=== PATIENT | female | born 1950 | race Caucasian/White ===

== ENCOUNTER → 2018-03-08 | Outpatient (CLI) | payer MEDICARE ==
[~2018-03-08] MED LIST: ASPI81CH PO; FURO40 PO; LEVO750 PO; POTCHL10ER
[2018-03-08 15:10] LABS: BASOPHILS ABSOLUTE AUTO 0.03 K/mm3 (0.00-0.23); BASOPHILS PERCENT AUTO 1 % (0-2); EOSINOPHILS PERCENT AUTO 2 % (0-6); Hematocrit 39.4 % (33.0-51.0); Hemoglobin 12.7 g/dL (11.5-16.0); IMMATURE GRAN ABSOLUTE AUTO 0.03 K/mm3 (0.00-0.10); IMMATURE GRAN PERCENT AUTO 1 % (0-1); LYMPHOCYTES ABSOLUTE AUTO 2.49 K/mm3 (0.84-5.20); LYMPHOCYTES PERCENT AUTO 38 % (21-46); MONOCYTES ABSOLUTE AUTO 0.59 K/mm3 (0.16-1.47); MONOCYTES PERCENT AUTO 9 % (4-13); Mean Corpuscular HGB 29.3 pg (26.0-34.0); Mean Corpuscular HGB Conc 32.2 g/dL (31.5-36.5); Mean Corpuscular Volume 91 fL (80-100); Mean Platelet Volume 8.9 fL (9.1-12.4); NEUTROPHILS ABSOLUTE AUTO 3.39 K/mm3 (1.96-9.15); NEUTROPHILS PERCENT AUTO 51 % (41-73); Platelet Count 309 K/mm3 (150-400); RDW Coefficient Variation 14.3 % (11.7-14.2); RDW Standard Deviation 47.5 fL (35.1-46.3); Red Blood Cell Count 4.34 M/mm3 (3.80-5.20); White Blood Cell Count 6.63 K/mm3 (4.00-11.30)
[2018-03-08 15:26] LABS: Alanine Aminotransfer (ALT/SGP 29 U/L (12-78); Albumin, Blood 4.1 g/dL (3.4-5.0); Albumin/Globulin Ratio 1.2 (0.8-1.8); Alk Phos 89 U/L (40-126); Anion Gap 10 mmol/L (6-16); Aspartate Aminotrans (AST/SGOT 25 U/L (12-37); Bilirubin, Total 0.4 mg/dL (0.1-1.0); Blood Urea Nitrogen 15 mg/dL (8-24); CO2, Blood 28 mmol/L (21-32); Calcium, Blood 9.3 mg/dL (8.5-10.1); Chloride, Blood 101 mmol/L (98-108); Creatinine, Blood 0.88 mg/dL (0.40-1.00); Globulin, Blood 3.4 g/dL (2.2-4.0); Glomerular Filtration Rate >60 (60-); Glucose, Blood 81 mg/dL (70-99); Potassium, Blood 4.2 mmol/L (3.5-5.5); Sodium, Blood 139 mmol/L (136-145); Total Protein, Blood 7.5 g/dL (6.4-8.2)
== END ==
LOC: LAB SHORT 15:01 → LAB EV 15:01
PROVIDERS: General Practice
DX: L03.115 Cellulitis of right lower limb (principal); L03.116 Cellulitis of left lower limb
CPT/HCPCS: 80053; 83880; 85025; 85379

== ENCOUNTER 2018-08-01 02:05 | Emergency (ER) | payer MEDICARE ==
[~2018-08-01] VITALS: Ht 157.5 cm; Wt 77.1 kg
[2018-08-01 03:47] LABS: BASOPHILS ABSOLUTE AUTO 0.04 K/mm3 (0.00-0.23); BASOPHILS PERCENT AUTO 1 % (0-2); EOSINOPHILS ABSOLUTE AUTO 0.04 K/mm3 (0.00-0.68); EOSINOPHILS PERCENT AUTO 1 % (0-6); Hematocrit 36.7 % (33.0-51.0); Hemoglobin 11.6 g/dL (11.5-16.0); IMMATURE GRAN ABSOLUTE AUTO 0.02 K/mm3 (0.00-0.10); IMMATURE GRAN PERCENT AUTO 0 % (0-1); LYMPHOCYTES ABSOLUTE AUTO 2.18 K/mm3 (0.84-5.20); LYMPHOCYTES PERCENT AUTO 26 % (21-46); MONOCYTES ABSOLUTE AUTO 1.12 K/mm3 (0.16-1.47); MONOCYTES PERCENT AUTO 14 % (4-13); Mean Corpuscular HGB 29.3 pg (26.0-34.0); Mean Corpuscular HGB Conc 31.6 g/dL (31.5-36.5); Mean Corpuscular Volume 93 fL (80-100); NEUTROPHILS PERCENT AUTO 59 % (41-73); Platelet Count 277 K/mm3 (150-400); RDW Coefficient Variation 14.1 % (11.7-14.2); RDW Standard Deviation 47.9 fL (35.1-46.3); Red Blood Cell Count 3.96 M/mm3 (3.80-5.20)
[2018-08-01 03:58] LABS: Albumin, Blood 3.5 g/dL (3.4-5.0); Albumin/Globulin Ratio 0.9 (0.8-1.8); Bilirubin, Total 0.6 mg/dL (0.1-1.0); Bun/Creatinine Ratio 11.5 (12.0-20.0); Calcium, Blood 8.7 mg/dL (8.5-10.1); Creatinine, Blood 1.04 mg/dL (0.40-1.00); Globulin, Blood 3.8 g/dL (2.2-4.0); Potassium, Blood 3.3 mmol/L (3.5-5.5); Total Protein, Blood 7.3 g/dL (6.4-8.2)
[2018-08-01] MEDS ORDERED: Cleocin HCl150 MG PO (05:48)
[2018-08-01] MEDS ORDERED: Zofran Odt4 MG SL (06:12)
== END 2018-08-01 06:08 | disposition home or self-care (01) ==
LOC: ER 02:05
PROVIDERS: Emergency Medicine
DX: L03.116 Cellulitis of left lower limb (principal); Z79.82 Long term (current) use of aspirin; Z79.899 Other long term (current) drug therapy
CPT/HCPCS: 36415; 80053; 85025; 93971; 96365; 96375; 99284-25; J0690; J3010

== ENCOUNTER → 2019-02-15 | Outpatient (CLI) | payer MEDICARE ==
[~2019-02-15] MED LIST changes: +Cleocin HCl150 MG PO; +Zofran Odt4 MG SL
[2019-02-15 11:36] LABS: BASOPHILS ABSOLUTE AUTO 0.05 K/mm3 (0.00-0.23); BASOPHILS PERCENT AUTO 1 % (0-2); EOSINOPHILS ABSOLUTE AUTO 0.19 K/mm3 (0.00-0.68); EOSINOPHILS PERCENT AUTO 4 % (0-6); Hematocrit 38.4 % (33.0-51.0); Hemoglobin 12.6 g/dL (11.5-16.0); IMMATURE GRAN ABSOLUTE AUTO 0.01 K/mm3 (0.00-0.10); IMMATURE GRAN PERCENT AUTO 0 % (0-1); LYMPHOCYTES ABSOLUTE AUTO 2.02 K/mm3 (0.84-5.20); LYMPHOCYTES PERCENT AUTO 37 % (21-46); MONOCYTES PERCENT AUTO 9 % (4-13); Mean Corpuscular HGB 29.8 pg (26.0-34.0); Mean Corpuscular HGB Conc 32.8 g/dL (31.5-36.5); Mean Corpuscular Volume 91 fL (80-100); Mean Platelet Volume 8.8 fL (9.1-12.4); NEUTROPHILS ABSOLUTE AUTO 2.73 K/mm3 (1.96-9.15); NEUTROPHILS PERCENT AUTO 50 % (41-73); Platelet Count 313 K/mm3 (150-400); RDW Standard Deviation 46.5 fL (35.1-46.3); Red Blood Cell Count 4.23 M/mm3 (3.80-5.20)
[2019-02-15 12:00] LABS: Bun/Creatinine Ratio 14.8 (12.0-20.0); Calcium, Blood 8.6 mg/dL (8.5-10.1); Creatinine, Blood 1.08 mg/dL (0.40-1.00); Potassium, Blood 3.8 mmol/L (3.5-5.5)
== END | disposition home or self-care (01) ==
LOC: LAB EV 11:18 → LAB SHORT 11:18
PROVIDERS: Physician Assistant Surgical
DX: R22.43 Localized swelling, mass and lump, lower limb, bilateral (principal)
CPT/HCPCS: 80048; 85025

== ENCOUNTER 2019-03-18 18:51 | Emergency (ER) | payer MEDICARE ==
[~2019-03-18] VITALS: Ht 157.5 cm; Wt 84.4 kg
[2019-03-18 20:37] LABS: BASOPHILS ABSOLUTE AUTO 0.04 K/mm3 (0.00-0.23); BASOPHILS PERCENT AUTO 1 % (0-2); EOSINOPHILS ABSOLUTE AUTO 0.09 K/mm3 (0.00-0.68); EOSINOPHILS PERCENT AUTO 1 % (0-6); Hematocrit 40.7 % (33.0-51.0); Hemoglobin 12.7 g/dL (11.5-16.0); IMMATURE GRAN ABSOLUTE AUTO 0.02 K/mm3 (0.00-0.10); IMMATURE GRAN PERCENT AUTO 0 % (0-1); LYMPHOCYTES ABSOLUTE AUTO 1.98 K/mm3 (0.84-5.20); LYMPHOCYTES PERCENT AUTO 28 % (21-46); MONOCYTES ABSOLUTE AUTO 0.74 K/mm3 (0.16-1.47); MONOCYTES PERCENT AUTO 10 % (4-13); Mean Corpuscular HGB 29.3 pg (26.0-34.0); Mean Corpuscular HGB Conc 31.2 g/dL (31.5-36.5); Mean Corpuscular Volume 94 fL (80-100); Mean Platelet Volume 9.5 fL (9.1-12.4); NEUTROPHILS ABSOLUTE AUTO 4.26 K/mm3 (1.96-9.15); NEUTROPHILS PERCENT AUTO 60 % (41-73); Platelet Count 293 K/mm3 (150-400); RDW Coefficient Variation 13.7 % (11.7-14.2); Red Blood Cell Count 4.33 M/mm3 (3.80-5.20); White Blood Cell Count 7.13 K/mm3 (4.00-11.30)
[2019-03-18 20:57] LABS: Albumin, Blood 4.2 g/dL (3.4-5.0); Albumin/Globulin Ratio 1.2 (0.8-1.8); Bilirubin, Total 0.4 mg/dL (0.1-1.0); Calcium, Blood 9.1 mg/dL (8.5-10.1); Globulin, Blood 3.5 g/dL (2.2-4.0); Total Protein, Blood 7.7 g/dL (6.4-8.2)
== END 2019-03-19 01:46 | disposition home or self-care (01) ==
LOC: ER 18:51
PROVIDERS: Physician Assistant
DX: L03.116 Cellulitis of left lower limb (principal); Z79.82 Long term (current) use of aspirin; Z79.899 Other long term (current) drug therapy
CPT/HCPCS: 36415; 80053; 85025; 96365; 99284-25; J0878; J3370

== ENCOUNTER 2019-03-19 13:46 | Day surgery (SDC) | payer MEDICARE | END 2019-03-19 16:45 | disposition home or self-care (01) | LOC: ATC 13:46 | DX: L03.116 Cellulitis of left lower limb (principal); Z79.899 Other long term (current) drug therapy; Z79.82 Long term (current) use of aspirin | CPT/HCPCS: 96365; J3370; J7050 ==

== ENCOUNTER 2019-03-20 00:02 | Day surgery (SDC) | payer MEDICARE ==
[2019-03-20 14:49] LABS: Vancomycin, Trough 10.1 ug/mL (5.0-10.0)
== END 2019-03-20 22:44 | disposition home or self-care (01) ==
LOC: ATC 00:02
PROVIDERS: Physician Assistant
DX: L03.116 Cellulitis of left lower limb (principal); Z79.82 Long term (current) use of aspirin
CPT/HCPCS: 80202; 82565; 96365; 96366; J3370; J7050

== ENCOUNTER 2019-03-21 00:13 | Day surgery (SDC) | payer MEDICARE | END 2019-03-21 16:14 | disposition home or self-care (01) | LOC: ATC 00:13 | DX: L03.116 Cellulitis of left lower limb (principal); Z79.899 Other long term (current) drug therapy; Z79.82 Long term (current) use of aspirin | CPT/HCPCS: 96365; 96366; J3370; J7050 ==

== ENCOUNTER 2019-03-22 00:21 | Day surgery (SDC) | payer MEDICARE | END 2019-03-22 18:12 | disposition home or self-care (01) | LOC: ATC 00:21 | DX: L03.116 Cellulitis of left lower limb (principal); Z79.82 Long term (current) use of aspirin; Z79.899 Other long term (current) drug therapy | CPT/HCPCS: 96365; 96366; J3370; J7050 ==

== ENCOUNTER 2019-03-23 02:20 | Day surgery (SDC) | payer MEDICARE | END 2019-03-23 23:29 | disposition home or self-care (01) | LOC: ATC 02:20 | DX: L03.116 Cellulitis of left lower limb (principal) ==

== ENCOUNTER 2019-03-24 00:05 | Day surgery (SDC) | payer MEDICARE | END 2019-03-24 22:38 | disposition home or self-care (01) | LOC: ATC 00:05 | DX: L03.116 Cellulitis of left lower limb (principal) ==

== ENCOUNTER → 2019-07-01 | Outpatient (CLI) | payer MEDICARE, OTHER ==
[2019-07-01 13:01] LABS: BASOPHILS ABSOLUTE AUTO 0.04 K/mm3 (0.00-0.23); BASOPHILS PERCENT AUTO 1 % (0-2); EOSINOPHILS ABSOLUTE AUTO 0.13 K/mm3 (0.00-0.68); EOSINOPHILS PERCENT AUTO 2 % (0-6); Hematocrit 38.6 % (33.0-51.0); Hemoglobin 12.2 g/dL (11.5-16.0); IMMATURE GRAN ABSOLUTE AUTO 0.01 K/mm3 (0.00-0.10); IMMATURE GRAN PERCENT AUTO 0 % (0-1); LYMPHOCYTES ABSOLUTE AUTO 2.25 K/mm3 (0.84-5.20); LYMPHOCYTES PERCENT AUTO 39 % (21-46); MONOCYTES ABSOLUTE AUTO 0.54 K/mm3 (0.16-1.47); MONOCYTES PERCENT AUTO 9 % (4-13); Mean Corpuscular HGB 29.8 pg (26.0-34.0); Mean Corpuscular HGB Conc 31.6 g/dL (31.5-36.5); Mean Corpuscular Volume 94 fL (80-100); Mean Platelet Volume 8.7 fL (9.1-12.4); NEUTROPHILS PERCENT AUTO 48 % (41-73); Platelet Count 374 K/mm3 (150-400); RDW Coefficient Variation 14.2 % (11.7-14.2); RDW Standard Deviation 48.4 fL (35.1-46.3); White Blood Cell Count 5.77 K/mm3 (4.00-11.30)
[2019-07-01 13:28] LABS: Albumin, Blood 3.5 g/dL (3.4-5.0); Albumin/Globulin Ratio 0.9 (0.8-1.8); Bilirubin, Total 0.5 mg/dL (0.1-1.0); Calcium, Blood 9.4 mg/dL (8.5-10.1); Creatinine, Blood 1.14 mg/dL (0.40-1.00); Globulin, Blood 3.8 g/dL (2.2-4.0); Magnesium, Blood 2.6 mg/dL (1.6-2.4); Potassium, Blood 3.4 mmol/L (3.5-5.5); Total Protein, Blood 7.3 g/dL (6.4-8.2)
== END ==
LOC: LAB 08:00 → LAB SHORT 12:44 → EDSTATUS 14:47
PROVIDERS: Nurse Practitioner Family
DX: R11.0 Nausea (principal); I87.2 Venous insufficiency (chronic) (peripheral); R29.898 Other symptoms and signs involving the musculoskeletal system
CPT/HCPCS: 36415; 80053; 83605; 83735; 85025; 87070; 87077; 87147; 87186; 87205

== ENCOUNTER → 2023-04-25 | Outpatient (CLI) | payer MEDICARE | END | disposition home or self-care (01) | LOC: LAB 14:14 → LAB SHORT 14:14 | DX: N39.0 Urinary tract infection, site not specified (principal) | CPT/HCPCS: 87077; 87086; 87147; 87186 ==

== ENCOUNTER 2024-06-13 21:05 | Emergency (ER) | payer MEDICARE ==
[~2024-06-13] VITALS: Ht 154.9 cm; Wt 77.1 kg
[2024-06-13 21:14] VITALS: BP 113/89
[2024-06-13 21:42] LABS: BASOPHILS ABSOLUTE AUTO 0.05 K/mm3 (0.00-0.23); BASOPHILS PERCENT AUTO 1 % (0-2); EOSINOPHILS ABSOLUTE AUTO 0.13 K/mm3 (0.00-0.68); EOSINOPHILS PERCENT AUTO 2 % (0-6); Hematocrit 40.1 % (33.0-51.0); Hemoglobin 12.9 g/dL (11.5-16.0); IMMATURE GRAN ABSOLUTE AUTO 0.01 K/mm3 (0.00-0.10); IMMATURE GRAN PERCENT AUTO 0 % (0-1); LYMPHOCYTES ABSOLUTE AUTO 1.84 K/mm3 (0.84-5.20); LYMPHOCYTES PERCENT AUTO 24 % (21-46); MONOCYTES ABSOLUTE AUTO 0.54 K/mm3 (0.16-1.47); MONOCYTES PERCENT AUTO 7 % (4-13); Mean Corpuscular HGB 30.9 pg (26.0-34.0); Mean Corpuscular HGB Conc 32.2 g/dL (31.5-36.5); Mean Corpuscular Volume 96 fL (80-100); Mean Platelet Volume 8.9 fL (9.1-12.4); NEUTROPHILS ABSOLUTE AUTO 4.96 K/mm3 (1.96-9.15); NEUTROPHILS PERCENT AUTO 66 % (41-73); Platelet Count 311 K/mm3 (150-400); RDW Coefficient Variation 13.3 % (11.7-14.2); Red Blood Cell Count 4.18 M/mm3 (3.80-5.20); White Blood Cell Count 7.53 K/mm3 (4.00-11.30)
[2024-06-13 22:08] LABS: Albumin, Blood 4.2 g/dL (3.4-5.0); Albumin/Globulin Ratio 1.2 (0.8-1.8); Bilirubin, Total 0.7 mg/dL (0.1-1.0); Bun/Creatinine Ratio 14.8 (12.0-20.0); Calcium, Blood 9.5 mg/dL (8.5-10.1); Creatinine, Blood 1.28 mg/dL (0.40-1.00); Globulin, Blood 3.5 g/dL (2.2-4.0); Potassium, Blood 4.2 mmol/L (3.5-5.5); Total Protein, Blood 7.7 g/dL (6.4-8.2)
[2024-06-13] MEDS ORDERED: NS 1,000 ML IV ONE ×2 (23:56)
[2024-06-13] MEDS ORDERED: Ondansetron HCl 2 MG / ML 2ML Vial IV ONE (23:56)
[2024-06-13] MEDS ORDERED: Ondansetron HCl 2 MG / ML 2ML Vial ONE (23:56)
[2024-06-14] MEDS ORDERED: NS 1,000 ML IV ONE (07:40)
[2024-06-14 14:43] LABS: BASOPHILS ABSOLUTE AUTO 0.05 K/mm3 (0.00-0.23); BASOPHILS PERCENT AUTO 1 % (0-2); EOSINOPHILS ABSOLUTE AUTO 0.09 K/mm3 (0.00-0.68); EOSINOPHILS PERCENT AUTO 1 % (0-6); Hematocrit 38.2 % (33.0-51.0); Hemoglobin 11.7 g/dL (11.5-16.0); IMMATURE GRAN ABSOLUTE AUTO 0.03 K/mm3 (0.00-0.10); IMMATURE GRAN PERCENT AUTO 0 % (0-1); LYMPHOCYTES ABSOLUTE AUTO 1.96 K/mm3 (0.84-5.20); LYMPHOCYTES PERCENT AUTO 23 % (21-46); MONOCYTES ABSOLUTE AUTO 0.55 K/mm3 (0.16-1.47); MONOCYTES PERCENT AUTO 6 % (4-13); Mean Corpuscular HGB 30.4 pg (26.0-34.0); Mean Corpuscular HGB Conc 30.6 g/dL (31.5-36.5); Mean Corpuscular Volume 99 fL (80-100); NEUTROPHILS ABSOLUTE AUTO 5.99 K/mm3 (1.96-9.15); NEUTROPHILS PERCENT AUTO 69 % (41-73); Platelet Count 253 K/mm3 (150-400); RDW Coefficient Variation 13.5 % (11.7-14.2); RDW Standard Deviation 48.2 fL (35.1-46.3); Red Blood Cell Count 3.85 M/mm3 (3.80-5.20)
[2024-06-14 14:44] LABS: Albumin, Blood 3.6 g/dL (3.4-5.0); Albumin/Globulin Ratio 1.2 (0.8-1.8); Bilirubin, Total 0.5 mg/dL (0.1-1.0); Bun/Creatinine Ratio 19.6 (12.0-20.0); Calcium, Blood 8.4 mg/dL (8.5-10.1); Creatinine, Blood 1.07 mg/dL (0.40-1.00); Globulin, Blood 3.1 g/dL (2.2-4.0); Potassium, Blood 4.4 mmol/L (3.5-5.5); Total Protein, Blood 6.7 g/dL (6.4-8.2); White Blood Cell Count 8.67 K/mm3 (4.00-11.30)
== END 2024-06-14 03:28 | disposition home or self-care (01) ==
LOC: ER 21:05
PROVIDERS: Emergency Medicine; Student in an Organized Health Care Education/Training Program
DX: R10.11 Right upper quadrant pain (principal); R19.5 Other fecal abnormalities; Z87.891 Personal history of nicotine dependence
CPT/HCPCS: 51798; 74177; 80053; 83690; 85025; 86850; 86900; 86901; 93005; 93010; 96374; 99284-25; J2405; J7030; Q9967